=== PATIENT | female | born 1970 ===

== ENCOUNTER 2018-08-04 06:08 | Observation (INO) ==
[2018-08-04] MEDS ORDERED: ceFAZolin 2 GM Premix Inj 2 GM/50 ML PIGGYBACK IV.SIG ONE (06:13)
[2018-08-04] MEDS ORDERED: fentaNYL Citrate Inj 100 MCG/2 ML Ampul ONE (06:13)
[2018-08-04] MEDS ORDERED: Diphtheria/Tetanus/Pertussis Vaccine Inj 0.5 ML Syringe IM ONE (06:13)
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
[2018-08-04 06:48] LABS: Baso # (Auto) 0.1 th/mm3 (0.0-0.2); Baso % (Auto) 0.6 % (0.0-2.0); Eos % (Auto) 6.9 % (0.0-4.0); Hematocrit 41.6 % (35.0-46.0); Hemoglobin 13.8 gm/dL (11.6-15.3); Lymph # (Auto) 4.8 th/mm3 (1.0-4.8); Lymph % (Auto) 31.5 % (9.0-44.0); Mean Corpuscular HGB Conc 33.1 % (32.0-36.0); Mean Corpuscular Hemoglobin 30.9 pg (27.0-34.0); Mean Corpuscular Volume 93.2 fL (80.0-100.0); Mean Platelet Volume 9.8 fL (7.0-11.0); Mono # (Auto) 0.5 th/mm3 (0.0-0.9); Mono % (Auto) 3.6 % (0.0-8.0); Neut # (Auto) 8.7 th/mm3 (1.8-7.7); Neut % (Auto) 57.4 % (16.0-70.0); Platelet Count 316 th/mm3 (150-450); Red Blood Count 4.46 mil/mm3 (4.00-5.30); Red Cell Distribution Width 14.1 % (11.6-17.2); White Blood Count 15.2 th/mm3 (4.0-11.0)
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
[2018-08-04 06:58] LABS: Activated Partial Thrombo Time 23.6 sec (23.4-31.7); Prothrombin Time 9.9 sec (9.8-11.6)
[2018-08-04] MEDS ORDERED: HYDROmorphone PF Inj 2 MG/ML Vial IV.PUSH ONE (07:23)
[2018-08-04] MEDS ORDERED: ceFAZolin Inj 500 MG Vial ONE (07:50)
[2018-08-04] MEDS ORDERED: Tobramycin/Dexamethasone Opth Drops 5 ML Bottle ONE (07:50)
[2018-08-04] MEDS ORDERED: fentaNYL Citrate Inj 250 MCG/5 ML Ampul ONE (07:58)
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
[2018-08-04] MEDS ORDERED: Sugammadex Inj 200 MG/2 ML Vial IV.PUSH ONE (10:12)
--- NOTE | 2018-08-04 10:15 | P.OP ---
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 Patient was put under general anesthesia and prepped and draped in the usual sterile fashion for ophthalmic surgery. A wire lid speculum was placed in the left eye. A large scleral rupture was noted with uveal prolapse from 9-12 o'clock near the limbus. A conjunctival peritomy was created from 8 to 2 o'clock on the limbus. The uveal tissue was inserted back into the eye. TobraDex drops were used to irrigate the wound. 7-0 Vicryl was used to close the 10 mm scleral laceration. BSS was injected into the eye to reform it and laceration was found to be watertight. 7-0 Vicryl was used to close the conjunctiva. Subconjunctival Ancef and Dexamethasone injected. TobraDex ointment, a patch, and shield were placed on the left eye. The patient was sent to PACU in stable condition.
[2018-08-04] MEDS ORDERED: *Meperidine Inj 25 MG/ML Vial PERIprocedural Use ONLY ONE (10:59)
[2018-08-04] MEDS: Sod Chloride 0.9% Inj 1,000 ML IV.CONT SCH (19:23)
[2018-08-04] MEDS ORDERED: Docusate Sodium 100 MG Capsule PO SCH (21:00)
[2018-08-04] MEDS: Amoxicillin/Clavulanate 875/125 MG Tablet PO SCH (22:06)
[2018-08-05] MEDS: Sod Chloride 0.9% Inj 1,000 ML IV.CONT SCH (04:55)
[2018-08-05 07:42] VITALS: RESP 20; TEMP 98
[2018-08-05 08:43] LABS: Baso # (Auto) 0.1 th/mm3 (0.0-0.2); Baso % (Auto) 0.5 % (0.0-2.0); Eos % (Auto) 0.1 % (0.0-4.0); Hematocrit 35.5 % (35.0-46.0); Lymph % (Auto) 24.2 % (9.0-44.0); Mean Corpuscular HGB Conc 33.9 % (32.0-36.0); Mean Corpuscular Hemoglobin 31.7 pg (27.0-34.0); Mean Corpuscular Volume 93.6 fL (80.0-100.0); Mean Platelet Volume 10.3 fL (7.0-11.0); Neut # (Auto) 8.4 th/mm3 (1.8-7.7); Neut % (Auto) 67.2 % (16.0-70.0); Platelet Count 268 th/mm3 (150-450); Red Blood Count 3.79 mil/mm3 (4.00-5.30); Red Cell Distribution Width 14.5 % (11.6-17.2); White Blood Count 12.5 th/mm3 (4.0-11.0)
[2018-08-05 09:14] LABS: Anion Gap 10 meq/L (5-15); Blood Urea Nitrogen 10 mg/dL (7-18); Calcium 8.5 mg/dL (8.5-10.1); Carbon Dioxide 25.2 meq/L (21.0-32.0); Chloride 108 meq/L (98-107); Glomerular Filtration Rate Greater Than 89 mL/min (>89); Glucose,Random 114 mg/dL (74-106); Potassium 3.5 meq/L (3.5-5.1); Sodium 143 meq/L (136-145)
[2018-08-05] MEDS: Amoxicillin/Clavulanate 875/125 MG Tablet PO SCH (09:57)
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
[2018-08-05 12:25] VITALS: BP 171/81; PULSE 65; O2SAT 97
== END 2018-08-05 13:54 | disposition home or self-care (01) ==
LOC: EDBD → NEPI 06:08 → HSDC 08:03 → N05 08:03 → HSDC 08:05 → EDBD 15:32
PROVIDERS: ADMIT Surgery; ATTEND Surgery
DX: V89.2XXA Person injured in unspecified motor-vehicle accident, traffic, initial encounter; Y92.410 Unspecified street and highway as the place of occurrence of the external cause; S05.22XA Ocular laceration and rupture with prolapse or loss of intraocular tissue, left eye, initial encounter; [UNRECOGNIZED DIAGNOSIS CODE]; E849.5
CPT/HCPCS: 70450; 70486; 71010; 71045; 72125; 72170; 80048; 85025; 85610; 85730; 86850; 86900; 86901; 90471; 90715; 90774; 90775; 90784; 96361; 96374; 96375; 96376; 99285; 99291; C8952; G0378; G0390; J0131; J0690; J1100; J1120; J1170; J2175; J2405; J2550; J3010; J7030